=== PATIENT | male | born 1990 | race African-American/Black ===

== ENCOUNTER 2018-12-07 14:11 | Emergency (ER) | payer OTHER ==
[2018-12-07] MEDS ORDERED: LIDOCAINE 1% MPF 5 ML VIAL ONE (15:00)
--- NOTE | 2018-12-07 15:22 | EDPHYS ---
Physician Documentation [facility] Name: Braulio Hernández Age: 28 yrs Sex: Male : 1990 Arrival Date: 12/07/2018 Time: 14:16 Bed 17 Private MD: ED Physician Akil Bergeron HPI: 12/07 14:39 This 28 yrs old Black Male presents to ER via [employer] with complaints of kb Laceration To Lip. 14:39 The patient has a laceration related to: fell out of bunk occurred indoors, [facility]ci kb cell, and there are no complicating factors. The injury was accidental. The laceration(s) is(are) located on the upper lip. Onset: The symptoms/episode began/occurred 2 hour(s) ago. Associated signs and symptoms: The patient has no apparent associated signs or symptoms. The patient has not experienced similar symptoms in the past. The patient has not recently seen a physician. Pt reports he fell out of his bunk 2 hours ago and hit his lip. Denies LOC. Historical: - Allergies: 14:18 No Known Allergies; ss - Home Meds: 14:18 lisinopril 10 mg Oral tab 1 tab once daily [Active]; ss - PMHx: 14:18 Hypertension; ss - PSHx: 14:18 None; ss - Immunization history:: Adult Immunizations up to date. - Social history:: Smoking status: Patient/guardian denies using tobacco, the patient reports quitting approximately 2 years ago. - Ebola Screening: : Patient denies exposure to infectious person Patient denies travel to an Ebola-affected area in the 21 days before illness onset. ROS: 14:39 Constitutional: Negative for fever, chills, and weight loss, Cardiovascular: Negative kb for chest pain, palpitations, and edema, Respiratory: Negative for shortness of breath, cough, wheezing, and pleuritic chest pain, Abdomen/GI: Negative for abdominal pain, nausea, vomiting, diarrhea, and constipation, MS/Extremity: Negative for injury and deformity, Neuro: Negative for headache, weakness, numbness, tingling, and seizure. 14:39 Skin: Positive for laceration(s), of the upper lip. Exam: 14:39 Constitutional: This is a well developed, well nourished patient who is awake, alert, kb and in no acute distress. ENT: Nares patent. No nasal discharge, no septal abnormalities noted. Tympanic membranes are normal and external auditory canals are clear. Oropharynx with no redness, swelling, or masses, exudates, or evidence of obstruction, uvula midline. Mucous membranes moist. Neck: Trachea midline, no thyromegaly or masses palpated, and no cervical lymphadenopathy. Supple, full range of motion without nuchal rigidity, or vertebral point tenderness. No Meningismus. Chest/axilla: Normal chest wall appearance and motion. Nontender with no deformity. No lesions are appreciated. Cardiovascular: Regular rate and rhythm with a normal S1 and S2. No gallops, murmurs, or rubs. Normal PMI, no JVD. No pulse deficits. Respiratory: Lungs have equal breath sounds bilaterally, clear to auscultation and percussion. No rales, rhonchi or wheezes noted. No increased work of breathing, no retractions or nasal flaring. Abdomen/GI: Soft, non-tender, with normal bowel sounds. No distension or tympany. No guarding or rebound. No evidence of tenderness throughout. MS/ Extremity: Pulses equal, no cyanosis. Neurovascular intact. Full, normal range of motion. Neuro: Awake and alert, GCS 15, oriented to person, place, time, and situation. Cranial nerves II-XII grossly intact. Motor strength 5/5 in all extremities. Sensory grossly intact. Cerebellar exam normal. Normal gait. 14:39 Head/face: Noted is no obvious of injury or deformity except a laceration(s), that is superficial, 2 cm(s), of the upper lip. Vital Signs: 14:18 BP 134 / 84; Pulse 76; Resp 14; Temp 98.4(TE); Pulse Ox 98% on R/A; Weight 92.53 kg; ss Height 5 ft. 8 in. (172.72 cm); Pain 7/10; 15:00 BP 127 / 78; Pulse 69; Resp 16; Pulse Ox 99% on R/A; ph 14:18 Body Mass Index 31.02 (92.53 kg, 172.72 cm) ss Laceration: 15:20 Wound Repair of 2cm ( 0.8in ) subcutaneous laceration to upper vermilion border and kb upper lip. Linear shaped.. Distal neuro/vascular/tendon intact. Anesthesia: Wound infiltrated with 2 mls of 1% lidocaine. Wound prep: Moderate cleansing, Wound irrigation. Skin closed with 6 6-0 Prolene using interrupted sutures and sterile technique. Patient tolerated well. MDM: 14:19 Patient medically screened. kb 14:39 Data reviewed: vital signs, nurses notes. Data interpreted: Pulse oximetry: on room air kb is 98 %. Interpretation: normal. Counseling: I had a detailed discussion with the patient and/or guardian regarding: the historical points, exam findings, and any diagnostic results supporting the discharge/admit diagnosis, the need for outpatient follow up, a family practitioner, to return to the emergency department if symptoms worsen or persist or if there are any questions or concerns that arise at home. 12/07 14:37 Order name: Prolene, Sutures; Complete Time: 15:23 kb 12/07 14:37 Order name: Dressing - Wound; Complete Time: 15:23 kb 12/07 14:37 Order name: Gloves, Sterile; Complete Time: 15:23 kb 12/07 14:37 Order name: Setup Suture Tray; Complete Time: 15:24 kb Administered Medications: 15:24 Drug: Lidocaine (1 %) 1 vials Volume: 5 ml; Route: Infiltration; ph Disposition: 16:19 Co-signature as Attending Physician, Akil Bergeron MD I agree with the assessment and kdr plan of care. Disposition: 12/07/18 15:21 Discharged to Home. Impression: Laceration without foreign body of lip. - Condition is Stable. - Discharge Instructions: Mouth Laceration, [id number]. - Medication Reconciliation Form, Thank You Letter, Antibiotic Education, Prescription Opioid Use form. - Follow up: Emergency Department; When: As needed; Reason: Worsening of condition. Follow up: Private Physician; When: 2 - 3 days; Reason: Recheck today's complaints, Continuance of care, Re-evaluation by your physician. - Notes: Have sutures removed in 7-10 days Signatures: Arlen Pereira, SENIOR FUNCTIONAL ANALYST-C NADIR-Akil Toure MD MD [facility] Shena Silvestre RN RN ss Mariluz Lainez RN RN ph Renee Tamez RN RN [facility] Corrections: (The following items were deleted from the chart) 15:21 14:39 Pt reports he fell out of his bunk 2 hours ago and hit his lip. kb kb 15:31 15:21 12/07/2018 15:21 Discharged to Home. Impression: Laceration without foreign body rb1 of lip. Condition is Stable. Forms are Medication Reconciliation Form, Thank You Letter, Antibiotic Education, Prescription Opioid Use. Follow up: Emergency Department; When: As needed; Reason: Worsening of condition. Follow up: Private Physician; When: 2 - 3 days; Reason: Recheck today's complaints, Continuance of care, Re-evaluation by your physician. kb
--- NOTE | 2018-12-07 15:22 | ER ---
Nurse's Notes [facility] Name: Braulio Hernández Age: 28 yrs Sex: Male : 1990 Arrival Date: 12/07/2018 Time: 14:16 Bed 17 Private MD: Diagnosis: Laceration without foreign body of lip Presentation: 12/07 14:16 Presenting complaint: Patient states: laceration to R upper lip that occurred after ss patient reports that he fell off of a top bunk while in intermediate 2 hours ago. Denies LOC, or anything other injuries. Transition of care: patient was not received from another setting of care. Complicating Factors: There are no complicating factors for this patient. Onset of symptoms was December 07, 2018. Risk Assessment: Do you want to hurt yourself or someone else? Patient reports no desire to harm self or others. Initial Sepsis Screen: Does the patient meet any 2 criteria? No. Patient's initial sepsis screen is negative. Does the patient have a suspected source of infection? No. Patient's initial sepsis screen is negative. Care prior to arrival: None. 14:16 Method Of Arrival: Law Enforcement: [place] [facility] Corrections 14:16 Acuity: MAUDE 4 ss Historical: - Allergies: 14:18 No Known Allergies; ss - Home Meds: 14:18 lisinopril 10 mg Oral tab 1 tab once daily [Active]; ss - PMHx: 14:18 Hypertension; ss - PSHx: 14:18 None; ss - Immunization history:: Adult Immunizations up to date. - Social history:: Smoking status: Patient/guardian denies using tobacco, the patient reports quitting approximately 2 years ago. - Ebola Screening: : Patient denies exposure to infectious person Patient denies travel to an Ebola-affected area in the 21 days before illness onset. Screenin:45 Abuse screen: Denies threats or abuse. Denies injuries from another. Nutritional ph screening: No deficits noted. Tuberculosis screening: No symptoms or risk factors identified. Fall Risk None identified. Assessment: 14:40 General: Appears in no apparent distress. comfortable, Behavior is calm, cooperative, ph appropriate for age. Pain: Denies pain. Neuro: Level of Consciousness is awake, alert, obeys commands, Oriented to person, place, time, situation, Denies blurred vision dizziness, headache. Cardiovascular: Capillary refill < 3 seconds in bilateral fingers Patient's skin is warm and dry. Respiratory: Airway is patent Respiratory effort is even, unlabored, Respiratory pattern is regular, symmetrical. GI: No signs and/or symptoms were reported involving the gastrointestinal system. Derm: Skin is healthy with good turgor, Skin is pink, warm \T\ dry. Musculoskeletal: Circulation, motion, and sensation intact. Range of motion: intact in all extremities. Injury Description: Laceration sustained to upper lip is 0.5 to 2.5 cm long, not bleeding. Vital Signs: 14:18 BP 134 / 84; Pulse 76; Resp 14; Temp 98.4(TE); Pulse Ox 98% on R/A; Weight 92.53 kg; ss Height 5 ft. 8 in. (172.72 cm); Pain 7/10; 15:00 BP 127 / 78; Pulse 69; Resp 16; Pulse Ox 99% on R/A; ph 14:18 Body Mass Index 31.02 (92.53 kg, 172.72 cm) ED Course: 14:16 Patient arrived in ED. ss 14:17 Triage completed. ss 14:18 Arm band placed on right wrist. ss 14:19 Arlen Pereira FNP-C is [facility]. kb 14:19 Akil Bergeron MD is Attending Physician. kb 14:27 Mariluz Lainze, RN is Primary Nurse. ph 14:45 Patient has correct armband on for positive identification. Bed in low position. Call ph light in reach. Side rails up X 1. 15:29 Assist provider with laceration repair on upper lip Set up tray. Performed by Arlen ANDREW. Patient did not have IV access during this emergency room visit. Administered Medications: 15:24 Drug: Lidocaine (1 %) 1 vials Volume: 5 ml; Route: Infiltration; ph Outcome: 15:21 Discharge ordered by . kb 15:29 Discharged to [employer] Enforcement rb1 15:29 Condition: stable 15:29 Discharge instructions given to immigration services officer. Instructed on discharge instructions, follow up and referral plans. Demonstrated understanding of instructions, follow-up care, Prescriptions given X none 15:31 Patient left the ED. rb1 Signatures: Arlen Pereira FNP-C FNP-Shena Guajardo RN RN Mariluz Lainez RN RN ph Renee Tamez, RN RN rb1
== END 2018-12-07 15:31 | disposition home or self-care (01) ==
LOC: ER 14:11
PROC: 0CQ0XZZ Repair Upper Lip, External Approach (ICD-10-PCS; principal; 2018-12-07)
DX: S01.511A Laceration without foreign body of lip, initial encounter (principal); W06.XXXA Fall from bed, initial encounter; Y92.143 Cell of prison as the place of occurrence of the external cause; I10 Essential (primary) hypertension; Z87.891 Personal history of nicotine dependence
CPT/HCPCS: 99283